=== PATIENT | male | born 1965 | race Hispanic/Latino ===

== ENCOUNTER → 2024-03-17 | Day surgery (SDC) | payer OTHER ==
[~2024-03-17] MED LIST: COREG3.125 MG PO; OLMESARTAN-HCT1 EACH PO; OMEPRAZOLE40 MG PO; PANTOPRAZOLE SO40 MG PO; PROPOFOL IV EMULSION 10 MG/ML 20 ML VIAL ONE; VIT B COMPLEX PO
[2024-03-17] MEDS: LACTATED RINGER'S 1,000 ML ONE (08:23)
[2024-03-17 11:45] VITALS: BP 117/84; PULSE 60; RESP 16; TEMP 97.1; O2SAT 96
== END | disposition home or self-care (01) ==
LOC: OR 07:35
PROVIDERS: ATTEND Internal Medicine Gastroenterology
DX: Z12.11 Encounter for screening for malignant neoplasm of colon (principal); D12.2 Benign neoplasm of ascending colon; R19.7 Diarrhea, unspecified; K64.8 Other hemorrhoids; R10.9 Unspecified abdominal pain; R14.0 Abdominal distension (gaseous); K21.9 Gastro-esophageal reflux disease without esophagitis; I10 Essential (primary) hypertension; Z01.810 Encounter for preprocedural cardiovascular examination; Z79.899 Other long term (current) drug therapy
CPT/HCPCS: 45378; 45384; 93005